=== PATIENT | male | born 1995 | race Caucasian/White ===

== ENCOUNTER 2021-08-01 15:30 | Emergency (ER) | payer BC ==
[~2021-08-01] VITALS: Ht 172.7 cm; Wt 102.0 kg
[2021-08-01 19:00] LABS: BASOPHILS % 0.3 % (0.0-2.0); HEMATOCRIT. 43.1 % (42.0-52.0); HEMOGLOBIN. 14.9 g/dL (14.0-18.0); LYMPHOCYTES % 11.5 % (20.0-50.0); MEAN CORPUSCULAR HEMOGLOBIN 31.9 pg (28.0-32.0); MEAN CORPUSCULAR VOLUME 92.3 fL (80.0-94.0); MONOCYTES % 4.6 % (2.0-8.0); NEUTROPHILS % 83.6 % (40.0-76.0); PLATELET 231 x1000/uL (130-400); RED BLOOD CELL COUNT 4.67 mill/uL (4.7-6.1); RED CELL DISTRIBUTION WIDTH 13.1 % (11.6-14.6)
[2021-08-01 19:06] LABS: CHLORIDE 105 mEq/L (98-107)
[2021-08-01] MEDS ORDERED: ONDA4TAB5 MT (19:46)
[2021-08-01] MEDS ORDERED: PROT20 PO (19:46)
[2021-08-01 20:00] VITALS: BP 110/71
[2021-08-01] MEDS ORDERED: ONDANSETRON 4MG ODT PO NR (20:00)
[2021-08-01 20:35] LABS: CLARITY URINE CLEAR (CLEAR); COLOR URINE YELLOW (YELLOW); KETONES URINE 4+ (NEGATIVE); LEUKOCYTE ESTERASE URINE NEGATIVE (NEGATIVE); NITRITE URINE NEGATIVE (NEGATIVE); OCCULT BLOOD URINE NEGATIVE (NEGATIVE); PH URINE 6.5 (4.5-8.0); PROTEIN URINE NEGATIVE (NEGATIVE); SPECIFIC GRAVITY URINE 1.017 (1.005-1.030); UROBILINOGEN URINE 0.2 E.U./dL (0.2-1.0)
== END 2021-08-01 20:00 | disposition home or self-care (01) ==
LOC: ER 15:30
DX: R10.9 Unspecified abdominal pain (principal); R11.2 Nausea with vomiting, unspecified
CPT/HCPCS: 36415; 76705; 80053; 81003; 83690; 85025; 99284; Q0162; Z7610